=== PATIENT | female | born 1960 | race Caucasian/White ===

== ENCOUNTER 2016-11-02 07:45 | Outpatient (CLI) | payer BC ==
[~2016-11-02] VITALS: Ht 170.2 cm; Wt 95.5 kg
--- NOTE | ~2016-11-02 | HEMODYNAMI ---
PATIENT:ULI BAUMANN MEDICAL RECORD: [id number] : 56 LOCATION:[facility] ADMISSION DATE: 11/02/16 Generatedon:11/02/201612:36 Patient name: ULI BAUMANN Patient #: [id number] SSN: [id number] : 1960 Date of study: 11/02/2016 Page: Of Hemodynamic Procedure Report Patient Data Patient Demographics Procedure consent was obtained First Name: ULI Gender: Female Last Name: IBIS : 1960 Middle Initial: LESLIE Age: 56 year(s) Patient #: [id number] Race: SSN: [id number] Additional ID: [id number] Contact details [address]: [address] [place] [address] State: [place] City: [place] Zip code: [address] Past Medical History Allergies Allergen Reaction Date Comments Reported Other allergy 07/16/2015 NEOSPORIN Admission Admission Data Admission Date: 11/02/2016 Admission Time: 7:45 Arrival Date: 11/02/2016 Arrival Time: 9:30 Admit Source: Other Insurance Payor: Private health insurance Height (in.): 67 BSA: 2.07 (m2) Height (cm.): 170.18 BMI: 33.05 (kg/m2) Weight (lbs.): 211 Weight (kg.): 95.71 Lab Results Lab Result Date: 11/02/2016 Lab Result Time: 0:00 Biochemistry Name Units Result Min Max BUN mg/dl 45 --(----)-* 7 18 Creatinine mg/dl 1.3 --(---*)-- 0.6 1.3 CBC Name Units Result Min Max Hemoglobin g/dl 12.7 -*(----)-- 13.5 17.5 Procedure Procedure Types Cath Procedure Diagnostic Procedure C [facility] w/Coronaries PCI Procedure Coronary Stent Initial Procedure Description Procedure Date Procedure Date: 11/02/2016 Procedure Start Time: 12:07 Procedure End Time: 12:31 Procedure Staff Name Function Paul Colón MD Performing Physician Kylie Rees RT Scrub Eleanor San RN Nurse Geoffrey Valenzuela RT Bodily Injury Adjuster Farideh Samson RT Monitor Procedure Data Cath Procedure Fluoroscopy Diagnostic fluoroscopy Total fluoroscopy Time: 9.8 time: 9.8 min min Diagnostic fluoroscopy Total fluoroscopy dose: dose: 2552 mGy 2552 mGy Contrast Material Contrast Material Type Amount (ml) Isovue 370 92 Entry Location Entry Primary Successful Side Size Upsize Upsize Entry Closure Nogueira ccessful Closure Location (Fr) 1 (Fr) 2 (Fr) Remarks Device Remarks Radial Right 6 Fr Mechanical artery Short Compression Estimated blood loss: 5 ml Diagnostic catheters Device Type Used For End Catheter Placement Terumo Optitorque 5Fr Multi-vessel [place] 4.5 catheter Angiography Procedure Complications No complications Procedure Medications Medication Administration Route Dosage Oxygen NC 2 l/min Heparin Flush Bag added to field 2 bags (1000units/500ml NS) Lidocaine 2% added to field 20 Benadryl I.V. 50 mg Radial Cocktail added to field 1 syringe (Verapomil 2mg/Nitro 400mcg/Heparin 1500units) Versed I.V. 1 mg Fentanyl I.V. 50 mcg Radial Cocktail I.A. 1 syringe (Verapomil 2mg/Nitro 400mcg/Heparin 1500units) Versed I.V. 1 mg Fentanyl I.V. 50 mcg Fentanyl I.V. 50 mcg Versed I.V. 1 mg Heparin Bolus I.V. 4000 units Fentanyl I.V. 50 mcg Versed I.V. 1 mg Fentanyl I.V. 50 mcg Fentanyl I.V. 50 mcg Hemodynamics Rest BSA: 2.07 (m2) HGB: 12.7 (g/dl) O2 Consumption: Estimated: 192.38 (ml/min) O2 Co nsumption indexed: Estimated:92.94 (ml/min/m) Heart Rate: 64 (bpm) Pressure Samples Time Site Value (mmHg) Purpose Heart Use Rate(bpm) 12:11 LV 79/31,38 Snapshot 77 Snapshots Pre Cath Intra NCS Post Cath Vital Signs Time Heart Resp SPO2 NIBP (mmHg) Rhythm Pain Sedation Rate (ipm) (%) Status Level (bpm) 11:53:08 67 19 100 137/73(103) NSR 0 (11) 10(A) , No pain 11:57:26 66 22 100 127/75(102) NSR 0 (11) 10(A) , No pain 12:01:36 66 16 95 111/73(95) NSR 0 (11) 10(A) , No pain 12:05:44 68 16 95 109/67(86) NSR 0 (11) 10(A) , No pain 12:09:52 68 14 96 104/57(91) NSR 0 (11) 10(A) , No pain 12:14:51 71 14 97 99/54(77) NSR 0 (11) 10(A) , No pain 12:19:05 73 17 95 103/51(81) NSR 0 (11) 10(A) , No pain 12:23:15 77 14 96 99/56(82) NSR 0 (11) 9(A) , No pain 12:27:22 74 16 95 99/61(78) NSR 0 (11) 9(A) , No pain 12:31:06 78 16 95 113/66(93) NSR 0 (11) 10(A) , No pain Medications Time Medication Route Dose Verified Delivered Reason Note s Effectiveness by by 11:54:44 Oxygen NC 2 l/min Paul Eleanor Per physician Eldon San RN 11:54:51 Heparin Flush added 2 bags Paul Miller used for Bag to Eldon Colón MD procedure (1000units/500ml field NS) 11:54:57 Lidocaine 2% added 20ml Paul Paul used for to vial Eldon Colón MD procedure field 11:55:05 Benadryl I.V. 50 mg Paul Eleanor Per physician Eldon San RN 11:55:13 Radial Cocktail added 1 Paul Paul used for (Verapomil to syringe Eldon Colón MD procedure 2mg/Nitro field 400mcg/Heparin 1500units) 12:05:43 Versed I.V. 1 mg Paul Eleanor for sedation Eldon San RN 12:05:48 Fentanyl I.V. 50 mcg Paul Eleanor for sedation Eldon San RN 12:07:03 Fentanyl I.V. 50 mcg Paul Eleanor for sedation Eldon San RN 12:07:54 Versed I.V. 1 mg Paul Eleanor for sedation Eldon San RN 12:10:14 Fentanyl I.V. 50 mcg Paul Eleanor for sedation Eldon San RN 12:10:20 Versed I.V. 1 mg Paul Eleanor for sedation Eldon San RN 12:10:48 Radial Cocktail I.A. 1 Paul Paul for (Verapomil syringe Taudusty Colón MD vasodilation 2mg/Nitro 400mcg/Heparin 1500units) 12:14:00 Fentanyl I.V. 50 mcg Paul Eleanor for sedation Eldon San RN 12:14:05 Versed I.V. 1 mg Paul Eleanor for sedation Eldon San RN 12:15:03 Heparin Bolus I.V. 4000 Paul Eleanor for units Eldon San RN anticoagulation 12:20:47 Fentanyl I.V. 50 mcg Paul Eleanor for sedation Eldon San RN 12:22:03 Fentanyl I.V. 50 mcg Paul Eleanor for sedation Eldon San RN Procedure Log Time Note 11:30:14 Geoffrey Valenzuela RT(R) sent for patient. Start room use. 11:47:57 Diagnostic Cath Status : Elective 11:48:19 Time tracking: Regular hours 11:48:23 Plan of Care:Hemodynamics will remain stable., Cardiac rhythm will remain stable., Comfort level will be maintained., Respiratory function will remain adequate., Patient/ family verbilizes understanding of procedure., Procedure tolerated without complication., Recovers from procedure without complications.. 11:48:35 Patient received from Outpatients to [facility] 1 Alert and oriented. Tansferred to table in Supine position. 11:48:36 Warm blankets applied, and ricardo hugger turned on for patient comfort. 11:48:36 Correct patient and procedure confirmed by team. 11:48:38 Signed procedure consent form obtained from patient. 11:48:39 ECG and BP/O2 sat monitors applied to patient. 11:51:59 Vital chart was started 11:52:08 Baseline sample Acquired. 11:52:13 Rhythm: sinus rhythm 11:52:15 Full Disclosure recording started 11:52:42 H&P Date Dictated: 10/20/2016 Within 30 days and on chart., H&P Addendum completed by physician on day of procedure. (MUST COMPLETE FOR ALL OUTPATIENTS). 11:52:43 Pre-procedure instructions explained to patient. 11:52:43 Pre-op teaching completed and patient verbalized understanding. 11:52:44 Family in waiting room. 11:52:46 Patient NPO since Midnight. 11:52:48 Is the patient allergic to Iodine/contrast media? No. 11:52:49 Is patient on blood thinner?Yes 11:52:52 ACC The patient was administered the following blood thiners within the last 24 hours: ACCPlavix 11:54:44 Oxygen 2 l/min NC was given by Eleanor San RN; Per physician; 11:54:51 Heparin Flush Bag (1000units/500ml NS) 2 bags added to field was given by Paul Colón MD; used for procedure; 11:54:57 Lidocaine 2% 20ml vial added to field was given by Paul Colón MD; used for procedure; 11:55:05 Benadryl 50 mg I.V. was given by Eleanor San RN; Per physician; 11:55:13 Radial Cocktail (Verapomil 2mg/Nitro 400mcg/Heparin 1500units) 1 syringe added to field was given by Paul Colón MD; used for procedure; 11:58:47 Previous problem with sedation/anesthesia? No ? 11:58:50 Snore? Yes 11:59:03 Sleep apnea? No 11:59:04 Deviated septum? No 11:59:05 Opens mouth fully? Yes 11:59:05 Sticks out tongue? Yes 11:59:07 Airway obstruction? No ? 11:59:09 Dentures? No ? 11:59:15 Pre procedure: right dorsailis pedis pulse 1+ Palpable, but thready & weak; easily obliterated 11:59:19 Patient pain scale 0/10 ?. 11:59:25 IV patent on arrival in left forearm with 0.9% NaCl at [facility]. 11:59:46 Lab Result : BUN 45 mg/dl 11:59:46 Lab Result : Hemoglobin 12.7 g/dl 11:59:46 Lab Result : Creatinine 1.3 mg/dl 11:59:50 Lab results completed and on chart. 12:00:04 Right Radial & Right Groin area was prepped with chlora-prep and draped in sterile fashion 12:00:05 Alarms reviewed by R. N. 12:00:05 Sharps counted by scrub and verified by R.N. 12:01:12 Patient Height : 170.18 inches 12:01:16 Patient Weight : 95.71 lbs 12:01:16 Admit Source: Other 12:01:21 Arrival Date: 11/02/2016 9:30:00 AM 12:01:28 Insurance Payor : Private health insurance 12:02:37 Patient diabetic? Yes. 12:02:38 If diabetic: On Metformin? Yes 12:02:40 If on Metformin: Last Dose? 11/02/2016 12:05:22 Physician arrived 12:05:22 --------ALL STOP TIME OUT------ 12:05:23 Final Timeout: patient, procedure, and site verified with staff and physician. All members of the team are in agreement. 12:05:27 Right Radial & Right Groin site verified by team. 12:05:29 Physical assessment completed. ASA score P 2 - A patient with mild systemic disease as per Paul Colón MD. 12:05:33 Sedation plan: IV Moderate Sedation Versed, Fentanyl 12:05:41 Use device set Radial Dx 12:05:42 Acist Syringe opened to sterile field. 12:05:43 Versed 1 mg I.V. was given by Eleanor San RN; for sedation; 12:05:43 Cardinal Cath Pack opened to sterile field. 12:05:43 Bag Decanter opened to sterile field. 12:05:44 Terumo 6Fr Slender Glidesheath opened to sterile field. 12:05:44 St Jassi 260cm J .035 wire opened to sterile field. 12:05:45 Acist Manifold opened to sterile field. 12:05:46 Acist Hand Control opened to sterile field. 12:05:47 Tegaderm 4 x 4 opened to sterile field. 12:05:48 Fentanyl 50 mcg I.V. was given by Eleanor San RN; for sedation; 12:05:51 Procedure started. 12:07:03 Fentanyl 50 mcg I.V. was given by Eleanor San RN; for sedation; 12:07:28 Local anesthetic to right radial artery with Lidocaine 2% by Paul Colón MD.INITIAL ACCESS ONLY 12:07:54 Versed 1 mg I.V. was given by Eleanor San RN; for sedation; 12:10:01 A 6 Fr Short sheath was inserted into the Right Radial artery 12:10:14 Fentanyl 50 mcg I.V. was given by Eleanor San RN; for sedation; 12:10:20 Versed 1 mg I.V. was given by Eleanor San RN; for sedation; 12:10:34 A TerumEdgeInova International Optitorque 5Fr [place] 4.5 catheter was advanced over the wire and used for Multi-vessel Angiography. 12:10:48 Radial Cocktail (Verapomil 2mg/Nitro 400mcg/Heparin 1500units) 1 syringe I.A. was given by Paul Colón MD; for vasodilation; 12:11:32 LV hemodynamics recorded. 12:11:37 LV gram done using PIERSON 12:11:40 Injector settings: Ml/sec: 5, Volume: 15, 12:11:44 EF : 50 % 12:11:50 LCA angiography performed. 12:11:52 Injector settings: Ml/sec: 3, Volume: 6, 12:12:23 RCA angiography performed. 12:13:00 Gaytan RentPostisper J 300cm 0.014 guide wire opened to sterile field. 12:13:00 HOMEOSTASIS LABSixCompak Inflation Kit opened to sterile field. 12:13:12 Injector settings: Ml/sec: 3, Volume: 6, 12:13:14 Catheter removed. 12:14:00 Fentanyl 50 mcg I.V. was given by Eleanor San RN; for sedation; 12:14:05 Versed 1 mg I.V. was given by Eleanor San RN; for sedation; 12:14:39 Cordis 6FR XBLAD 3.5 guide catheter opened to sterile field. 12:14:50 Proceeding to intervention. 12:15:00 6 Fr xblad 3.5 guide catheter was inserted over the wire 12:15:03 Heparin Bolus 4000 units I.V. was given by Eleanor San RN; for anticoagulation; 12:18:51 dscovered Choice PT Extra Support J 300cm .014 gu opened to sterile field. 12:19:22 choice pt wire advanced. 12:20:47 Fentanyl 50 mcg I.V. was given by Eleanor San RN; for sedation; 12:22:03 Fentanyl 50 mcg I.V. was given by Eleanor San RN; for sedation; 12::53 Wire advanced across lesion. 12:24:51 Inflation number: 1 A Euphora 2.5 x 12 Balloon was prepped and advanced across the Mid CX, then inflated to 11 KOREY for 0:10 (min:sec). 12:26:12 Balloon removed over the wire. 12:27:29 Inflation Number: 2 A Promus Premier OTW 2.5 x 8 stent was prepped and advanced across the Mid CX. The stent was deployed at 13 KOREY for 0:10 (min:sec). 12:28:28 Stent catheter was removed intact over wire. 12:28:31 Wire removed. 12:28:31 Guide catheter removed. 12:28:37 Terumo TR Band Standard opened to sterile field. 12:29:48 Sheath removed intact; hemostasis achieved with Mechanical Compression to the Right Radial artery. 12:29:50 Procedure ended.(Physican Out) 12:30:43 Fluoroscopy time 09.80 minutes. 12:30:48 Fluoroscopy dose: 2552 mGy 12:30:48 Flurop Dose total: 2552 12:30:52 Contrast amount:Isovue 370 92ml. 12:30:54 Sharps counted by scrub and verified by R.N. 12:30:56 TR band inflated with 10cc of air. 12:30:57 Insertion/operative site no bleeding no hematoma. 12:31:02 Post right radial artery:stable 12:31:03 Post Procedure Pulses reassessed and unchanged 12:31:05 Post procedure rhythm: unchanged. 12:31:08 Estimated blood loss: 5 ml 12:31:10 Post procedure instruction explained to patient.Patient verbalizes understanding. 12:31:10 Patient needs reinforcement of post procedure teaching. 12:31:20 Procedure type changed to Cath procedure, Diagnostic procedure, LHC, LHC w/Coronaries, PCI procedure, Coronary Stent Initial 12::23 Procedure and supply charges have been captured, reviewed, submitted and are correct. 12::27 Procedure Complication : No complications 12:31:29 Vital chart was stopped 12::30 See physician's report for complete and final results. 12:31:32 Report given to Post Procedure Room. 12:31:40 Patient transfered to Post Procedure Room with Stretcher. 12:31:42 Procedure ended. 12:31:42 Full Disclosure recording stopped 12:32:47 ACC-PCI Only Patient was given prescriptions, or instructed by Paul Colón MD to start/continue the following medications upon discharge: Plavix 12:32:49 End room use (Document Last) Intervention Summary Intervention Notes Time ActionType Lesion and Equipment Action# Pressure Duration Attributes Used 12:24:51 Inflate Mid CX Euphora 1 11 00:10 balloon 2.5 x 12 Balloon 12:27:29 Place stent Mid CX Promus 2 13 00:10 Premier OTW 2.5 x 8 stent Device Usage Item Name Manufacture Quantity Catalog Number Hospital Part Current Mini mal Lot# / Charge Number Stock Stock Serial# Code Acist Acist 1 56070 625331 694867 725438 20 Syringe Medical Systems Inc Cardinal Cardinal 1 [id number] 177811 09272 372019 5 Cath Pack Health Bag Microtek 1 2002S 238243 50538 964889 5 Aztec [employer] Inc. Terumo 6Fr Terumo 1 [id number] 450275 512251 106594 [address] Jassi St Jassi 1 450713 018805 123851 237701 30 260cm J .035 wire Acist Acist 1 89023 507787 995656 804917 5 Manifold Medical Systems Inc Acist Hand Acist 1 67730 898233 405080 791896 5 National Banana Medical Systems Inc Tegaderm 4 3M 1 1626W 264488 750933 515566 5 x 4 Terumo Terumo 1 405012 612601 973828 167919 5 Optitorque 5Fr [place] 4.5 catheter Gaytan Gaytan 1 [id number] 478652 524564 035841 5 Whisper J Vascular 300cm 0.014 guide wire Merit Merit 1 [id number] 309124 889727 782497 15 [employer] Inflation Kit Cordis 6FR Cardinal 1 [id number] 150332 021969 270083 10 XBLAD 3.5 Health guide catheter Dodge Sci Dodge 1 [id number] 002700 239168 938007 5 Choice PT Scientific Extra Support J 300cm .014 gu Euphora 2.5 Medtronic 1 [id number] 557006 489364 372573 5 [id number] x 12 Balloon Promus Dodge 1 [id number] 661341 622810 5 [id number] Premier [facility] Scientific 2.5 x 8 stent Terumo TR Terumo 1 [id number] 282629 835680 681519 40 Band Standard Signature Audit [place] Stage Time Signature Unsigned Intra-Procedure 11/02/2016 Farideh Samson 12:36:29 PM RT(R) Signatures Monitor : Farideh Samson RT Signature : Date : Time : [facility] [address] [place] [address]
[~2016-11-02 07:45] MED LIST: AMBIEN10 MG PO; ASPIRIN325 MG; BORAGE OIL; CIPRO500 MG PO; CYCLOBENZAPRINE10 MG PO; FLAGYL500 MG PO; LIPITOR40 MG PO; NORCO 7.5/325 T1 TA1 PO; PLAVIX75 MG PO; PRILOSEC20 MG PO; TOPROL XL100 MG PO; ZESTRIL20 MG PO; ZOFRAN ODT4 MG/UDTAB PO
[2016-11-02 08:23] LABS: BASOPHILS 0.4 % (0.0-2.0); EOSINOPHILS 3.3 % (0-7); HEMATOCRIT 38.6 % (36.0-48.0); HEMOGLOBIN 12.7 g/dL (12-16); IMMATURE GRANULOCYTES 0.1 % (0-5); MCH 28.3 pg (26.0-34.0); MCHC 32.9 g/dL (31.0-37.0); MCV 86.2 fL (80.0-100.0); MEAN PLATELET VOLUME 10.6 fL (7.4-10.4); MONOCYTES 10.3 % (2-11); NEUTROPHILS 57.9 % (40-80); PLATELET COUNT 211 10x3/uL (130-400); RBC 4.48 10x6/uL (4.00-5.40); RDW 14.5 % (11.5-14.5); WBC 7.7 10x3/uL (4.8-10.8)
[2016-11-02 08:45] LABS: ANION GAP 12.8 mmol/L (8-16); CARBON DIOXIDE 23.9 mmol/L (21.0-32.0); CREATININE - SERUM 1.3 mg/dL (0.6-1.3); POTASSIUM - SERUM 4.7 mmol/L (3.5-5.1)
[2016-11-02] MEDS ORDERED: AMBIEN CR12.5 MG/BO PO (08:46)
[2016-11-02] MEDS ORDERED: METOPROLOL TAR100 M1 PO (08:49)
[2016-11-02] MEDS ORDERED: CO Q-10100 MG PO (08:49)
[2016-11-02] MEDS ORDERED: PLAVIX75 MG PO ×3 (08:49→12:43)
[2016-11-02] MEDS ORDERED: TOPROL XL100 MG PO (08:49)
[2016-11-02 08:57] VITALS: Ht 170.2 cm; Wt 95.5 kg
--- NOTE | 2016-11-02 12:53 | NUR ---
RESTING QUIETLY, FAMILY AT BEDSIDE. VSS. RIGHT WRIST CDI, NO HEMATOMA NOTED. INSTRUCTED PT NOT TO BEND OR FLEX WRIST. NO C/O OF CHEST PAIN OR NAUSEA. WILL CONTINUE TO MONITOR.
--- NOTE | 2016-11-02 13:32 | NUR ---
HR 66 BP 115/59 CHEST PAIN DENIED TR BAND TO R/WRIST CDI NO BLEEDING NO HEMATOMA NOTED. SANDWICH AND SODA TO BEDSIDE WITH NAUSEA DENIED
--- NOTE | 2016-11-02 14:30 | NUR ---
SITTING WITH HOB UP 30 DEGREES VSS AND CHEST PAIN DENIED. TR BAND TO R/WRIST CDI NO BLEEDING NO HEMATOMA NOTED. FAMILY AT SIDE
--- NOTE | 2016-11-02 15:30 | NUR ---
2 CC AIR REMOVED FROM TR BAND WITH NO BLEEDING NO HEMATOMA NOTED VSS WITH CHEST PAIN DENIED
--- NOTE | 2016-11-02 15:52 | NUR ---
PIV REMOVED FROM LEFT ARM WITH BANDAID APPLIED. UP TO BATHROOM TO VOID.
--- NOTE | 2016-11-02 15:59 | NUR ---
PATIENT DRESSED AND UP TO BATHROOM VOIDS WITHOUT COMPLAINTS. DISCHARGE INSTRUCTIONS GONE OVER WITH PATIENT AND FAMILY TR BAND REMOVED WITH DRESSING APPLIED NO BLEEDING NO HEMATOMA NOTED CHEST PAIN IS DENIED. PRISCRIPTION FOR PLAVIX IN HAND
--- NOTE | 2016-11-05 11:12 | OP ---
PATIENT NAME: ULI BAUMANN MEDICAL RECORD: [id number] :56 LOCATION:D.CAT ADMISSION DATE: SURGEON: NEGRA OLIVIA MD DATE OF OPERATION: 11/02/2016 PROCEDURES: 1. PTCA stent, left circumflex. 2. Left heart catheterization. 3. Selective coronary angiography. 4. Left ventriculogram. INDICATION: Angina and coronary artery disease. PROCEDURE IN DETAIL: After informed consent was obtained and after detailed explanation of risks, benefits as well as alternative therapies, the patient elected to proceed with angiogram and angioplasty. The right radial area was prepped and draped in normal sterile fashion. The right radial artery was cannulated via modified Seldinger technique with placement of 6-Romansh sheath. All catheters exchanged through this sheath. FINDINGS: Left ventriculogram was performed in standard 30-degree PIERSON view, reveals preserved cardiac wall motion, ejection fraction 50%. SELECTIVE CORONARY ANGIOGRAPHY: 1. Left main is with no significant angiographic disease. 2. Left anterior descending has previously placed stents, these are widely patent with no significant restenosis. No disease elsewise throughout the LAD or its branches. 3. The right coronary artery has previously placed stents. These are totally occluded in the mid vessel. The distal right coronary fills via left to right collaterals off the circumflex. 4. The left circumflex has a previously placed stent. This is widely patent. However, the branch that feeds the collaterals to the distal RCA has an 80% and 90% stenosis at its ostium. PERCUTANEOUS TRANSLUMINAL CORONARY ANGIOPLASTY STENT OF THE LEFT CIRCUMFLEX: The stent used was a 2.5 x 8 mm Promus. Result was 0% residual stenosis. OVERALL IMPRESSION: Successful percutaneous transluminal coronary angioplasty stent of the left circumflex in a branch that feeds not only the distal left circumflex but feeds collaterals to the distal right coronary artery from chronic total occlusion of the right coronary artery going from 80+ percent initial stenosis in that branch to 0% residual. TRANSINT:[id number] Voice Confirmation ID: [id number] DOCUMENT ID: [id number] NEGRA OLIVIA MD at 1112 CC: [id number] DICTATION DATE: 11/02/16 1235 CONTINUOUS PILLOWCASE CUTTER: 11/02/16 1313 DEP CLI 11/02/[address] [address]
== END 2016-11-02 16:15 | disposition home or self-care (01) ==
LOC: D.CATH 07:45
PROVIDERS: Internal Medicine Interventional Cardiology
DX: I25.119 Atherosclerotic heart disease of native coronary artery with unspecified angina pectoris (principal); I25.10 Atherosclerotic heart disease of native coronary artery without angina pectoris; I10 Essential (primary) hypertension; E78.5 Hyperlipidemia, unspecified

== ENCOUNTER 2017-02-05 18:48 | Inpatient (IN) | payer BC ==
[~2017-02-05] VITALS: Ht 170.2 cm; Wt 93.4 kg
[~2017-02-05 18:48] MED LIST changes: +AMBIEN CR12.5 MG/BO PO; +CO Q-10100 MG PO; +METOPROLOL TAR100 M1 PO
[2017-02-05 21:05] LABS: BASOPHILS 0.2 % (0-2); EOSINOPHILS 0.7 % (0-7); HEMOGLOBIN 12.9 g/dL (12-16); IMMATURE GRANULOCYTES 0.2 % (0-5); LYMPHOCYTES 15.5 % (15-50); MCH 28.2 pg (26.0-34.0); MCHC 33.1 g/dL (31.0-37.0); MCV 85.3 fL (80.0-100.0); MEAN PLATELET VOLUME 11.1 fL (7.4-10.4); MONOCYTES 9.3 % (2-11); NEUTROPHILS 74.1 % (40-80); PLATELET COUNT 222 10x3/uL (130-400); RBC 4.57 10x6/uL (4.00-5.40); RDW 14.2 % (11.5-14.5); WBC 12.2 10x3/uL (4.8-10.8)
[2017-02-05 21:14] LABS: APTT 25.4 SECONDS (22.8-39.4); INR 0.91 (0.85-1.17); PROTIME 12.1 SECONDS (11.6-15.0)
[2017-02-05 21:18] LABS: ALBUMIN 3.8 g/dL (3.4-5.0); ANION GAP 13.8 mmol/L (8-16); BILIRUBIN - TOTAL 0.5 mg/dL (0.2-1.3); CALCIUM 9.2 mg/dL (8.5-10.1); CARBON DIOXIDE 26.2 mmol/L (21.0-32.0); CREATININE - SERUM 1.1 mg/dL (0.6-1.3); PROTEIN - SERUM 7.8 g/dL (6.4-8.2)
[2017-02-05] MEDS ORDERED: GABAPENTIN100 MG PO (22:06)
--- NOTE | 2017-02-05 22:50 | NUR ---
REC'D PATIENT FROM ER VIA STRETCHER. REC;D REPORT FROM SPEEDY MARISCAL. PATIENT IS ALERT AND ORIENTED X4. DENIES PAIN AT THIS TIME. HAD PAIN MEDS IN THE ER. NO DISTRESS NOTED. HAS ABNER IN HER HEAD THAT ARE BLEEDING FROM THE SITE. COVERED WITH A PETROLUM DRESSING AND WRAPPED WITH GAZE UNTIL BLEEDING IS CONTROLLED. RESPIRATIONS ARE EVEN AND UNLABORED. LUNGS ARE CLEAR IN ALL LOBES. ABDOMEN ROUND SLIGHTLY DISTENDED. REPORTED LAST BM 02/04/17. URINE IS CLEAR, STRAW COLORED.DENIES DIFFICULTY URINATING. FULL ROM IN UPPER AND LOWER EXTREMITIES. MUSCLE STRENGTH 5/5. EQUAL FREE LANCE MODEL. SKIN IS WARM, AND DRY. HAS A LACERATION TO THE SCALP WITH ABNER INTACT, BRUSING ON THE RIGHT SIDE OF HER NECK, IT IS MARKED TO SEE IF IT GROWS. ABRASION TO THE RIGHT FORARM AND KNEE WITH POSSBLE CONTUSIONS. HAS A LEFT FORARM 20G WITH NS @75. DENIES FURTHER NEEDS AT THIS TIME. INSTRUCTED TO CALL IF NEEDED ANYTHING. FAMILY IS AT BEDSIDE. BED LOW, LOCKED, CALL LIGHT IN REACH.
[2017-02-06] VITALS (7 sets, daily range): BP systolic 119–171; BP diastolic 73–98; BMI 32.2
--- NOTE | 2017-02-06 07:00 | NUR ---
PT REC'D FROM [facility]. RESTING IN BED WITH EYES CLOSED. AAOX4. DRESSING TO HEAD INTACT WITH SCANT AMOUNT OF SEROSANGUINOUS DRAINAGE TO TOP R SIDE. RATING CURRENT PAIN IN HEAD AND SHOULDERS 10/10. WILL ADMINISTER PAIN MEDS. PIV TO L FOREARM FREE OF REDNESS AND SWELLING. BED LOW, CALL LIGHT IN REACH, DENIES NEEDS. CPOC.
--- NOTE | 2017-02-06 08:13 | NUR ---
PRN MORPHINE ADMINISTERED PER PT COMPLAINTS OF 10/10 HEAD AND SHOULDER PAIN. WILL REASSESS. BED LOW, CALL LIGHT IN REACH, DENIES NEEDS. CPOC.
--- NOTE | 2017-02-06 11:54 | NUR ---
PT BEING TAKEN FOR CT VIA WC.
--- NOTE | 2017-02-06 12:22 | NUR ---
PRN ANTIEMETIC AND PAIN MEDICATION ADMINISTERED PER PT COMPLAINTS OF NAUSEA AND 10/10 HEAD AND NECK PAIN. WILL REASSESS. LUNCH TRAY AT BEDSIDE. BED LOW, CALL LIGHT IN REACH, DENIES NEEDS. CPOC.
--- NOTE | 2017-02-06 12:37 | NUR ---
PRN PAIN MEDICATION ADMINISTERED DUE TO PT COMPLAINTS OF 5/10 L HIP PAIN. BED GUESTS AT BEDSIDE. AWAITING DR. OSORIO TO COME SPEAK WITH THEM ABOUT SURGERY TOMORROW. BED LOW, LUNCH TRAY AT BEDSIDE, DENIES NEEDS. CPOC.
--- NOTE | 2017-02-06 13:03 | NUR ---
PT MOTHER AT NURSES STATION. UPDATE PROVIDED.
--- NOTE | 2017-02-06 15:06 | NUR ---
SPOKE WITH DR. AMOR ON PHONE ABOUT CT. STATED THAT IT HAD NOT BEEN READ YET. INSTRUCTED TO GIVE HIM A CALL WHEN IT HAD BEEN TO STAY UP TO DATE.
--- NOTE | 2017-02-06 16:14 | NUR ---
SHEET METAL OPERATOR SET UP AND PT INSTURCTED ON DEVICE. ABLE TO RETURN DEMONSTRATION. RATING CURRENT PAIN IN HEAD AND NECK A 10/10. WILL REASSESS. BED LOW, CALL LIGHT IN REACH, DENIES NEEDS. CPOC.
--- NOTE | 2017-02-06 18:12 | NUR ---
SPOKE WITH PT ABOUT HER HOME MEDICATIONS. CALLED DR. CAMERON IN THE ER. HE STATED THAT I NEEDED TO CALL THE NURSE SALES SERVICE ASSISTANT. WILL PAGE.
--- NOTE | 2017-02-06 18:54 | NUR ---
SPOKE WITH DR. CAMERON ABOUT CONTINUING HOME MEDS. NEW ORDERS REC'D. PT UPDATED ON POC.
--- NOTE | 2017-02-06 22:33 | NUR ---
PATIENT RESTING IN BED WITH EYES CLOSED AND NO VISIBLE SIGNS OF DISTRESS. BED IN LOWEST POSITION AND CALL LIGHT WITHIN REACH.
[2017-02-07] VITALS: BP 149/96
--- NOTE | 2017-02-07 01:09 | NUR ---
REC'D PATIENT SITTING IN BED WATCHING TV. ALERT AND ORIENTED X4. REPORTED PAIN MORE SORENESS IN HER SHOULDERS AND NECK THAN ANYTHING. CHANGED DRESSING ON HEAD, IS SEEPING SLIGHTLY. STATES SHE IS HAVING SOME NAUSA, WILL ADMINISTER MEDS PRESCRIBED. WAS STILL WANTING TO KNOW ABT HER BP MEDS. @2230 SPEEDY NORIEGA PULLED LISOPRIL AND LOPRESSOR FOR HER PER DOCTORS ORDERS. ADMINISTERED WILL CONT TO MONITOR BP AND HR. THE BRUISE ON HER NECK HAS GROWN PAST THE MARKINGS. NIECE IS AT BEDSIDE. DENIED FURTHER NEEDS AT THIS TIME. BED LOW, LOCKED CALL LIGHT IN REACH.
[2017-02-07 04:00] VITALS: BP 158/89
[2017-02-07 06:20] LABS: BASOPHILS 0.2 % (0-2); EOSINOPHILS 0 % (0-7); HEMATOCRIT 38.2 % (36.0-48.0); HEMOGLOBIN 12.5 g/dL (12-16); IMMATURE GRANULOCYTES 0.3 % (0-5); LYMPHOCYTES 9.9 % (15-50); MCH 27.9 pg (26.0-34.0); MCHC 32.7 g/dL (31.0-37.0); MCV 85.3 fL (80.0-100.0); MONOCYTES 9.6 % (2-11); PLATELET COUNT 200 10x3/uL (130-400); RBC 4.48 10x6/uL (4.00-5.40); RDW 14.4 % (11.5-14.5); WBC 10.6 10x3/uL (4.8-10.8)
[2017-02-07 06:54] LABS: ANION GAP 14.2 mmol/L (8-16); CALCIUM 9.4 mg/dL (8.5-10.1); CARBON DIOXIDE 30.3 mmol/L (21.0-32.0); POTASSIUM - SERUM 3.5 mmol/L (3.5-5.1)
--- NOTE | 2017-02-07 08:35 | NUR ---
PT SEEN AND ASSESSED. WRAP NOTED TO HEAD WITH ABNER TO RIGHT SIDE OF HEAD-ALL CLEAN DRY AND INTACT. LARGE AMOUNT OF BRUISING NOTED TO RIGHT NECK-ABRASIONS NOTED TO RIGHT FOREARM AND RIGHT KNEE. COMPLAINTS OF PAIN BUT USING WAX PUMPER FOR TOLERANCE. CALL LIGHT IN PLACE
[2017-02-07 08:44] VITALS: BP 174/93
[2017-02-07 12:00] VITALS: BP 163/111
[2017-02-07 14:06] VITALS: Ht 170.2 cm; Wt 93.4 kg
[2017-02-07 16:56] VITALS: BP 134/71
[2017-02-07 18:00] VITALS: BP 136/62
--- NOTE | 2017-02-07 19:15 | NUR ---
REC'D PATIENT SITTING UP IN BED WATCHING TV. ALERT AND ORIENTED X4. DENIES PAIN AT THIS TIME. IS WANTING TO WASH HER HAIR AND BODY. TOOK A SHAMPOO CAP AND SOME BODY WASH AND A BASIN TO HER. NO DISTRESS NOTED. TOOK WRAP OFF OF HEAD. DENIED FURTHER NEEDS AT THIS TIME. INSTRUCTED TO CALL IF NEEDED ANYTHING. BED LOW, LOCKED, CALL LIGHT IN REACH.
[2017-02-08] VITALS: BP 107/82
[2017-02-08 04:00] VITALS: BP 159/89
[2017-02-08 05:56] LABS: BASOPHILS 0.2 % (0-2); EOSINOPHILS 0.6 % (0-7); HEMATOCRIT 37.5 % (36.0-48.0); HEMOGLOBIN 12.7 g/dL (12-16); IMMATURE GRANULOCYTES 0.2 % (0-5); LYMPHOCYTES 13.4 % (15-50); MCH 28.7 pg (26.0-34.0); MCHC 33.9 g/dL (31.0-37.0); MCV 84.7 fL (80.0-100.0); MEAN PLATELET VOLUME 10.7 fL (7.4-10.4); MONOCYTES 13.7 % (2-11); NEUTROPHILS 71.9 % (40-80); PLATELET COUNT 206 10x3/uL (130-400); RBC 4.43 10x6/uL (4.00-5.40); RDW 14.2 % (11.5-14.5); WBC 12.6 10x3/uL (4.8-10.8)
[2017-02-08 06:24] LABS: ANION GAP 13.4 mmol/L (8-16); CALCIUM 9.1 mg/dL (8.5-10.1); CARBON DIOXIDE 27.3 mmol/L (21.0-32.0); CREATININE - SERUM 0.9 mg/dL (0.6-1.3); POTASSIUM - SERUM 3.7 mmol/L (3.5-5.1)
--- NOTE | 2017-02-08 07:44 | NUR ---
AWAKE AND ALERT.ORIENTED X3. C/O NECK PAIN THIS AM. NEURO CHECKS WNL. WILL MONITOR. LUNGS ARE CLEAR BILATERALLY, NO COUGH NOTED. SKIN IS INTACT WITHOUT REDNESS. THERE IS A SCABBED AREA NOTED TO RIGHT KNEE WHICH IS SWOLLEN THIS AM. IV TO LEFT FOREARM IS PATENT WITHOUT REDNESS. DENIES NEEDS.
[2017-02-08 08:52] VITALS: BP 176/98
--- NOTE | 2017-02-08 09:30 | NUR ---
Patient Name: ULI BAUMANN Admission Status: ER Accout number: [id number] Admission Date: 02-05-2017 : 1960 Admission Diagnosis: Attending: TIA Current LOS: 3 Anticipated DC Date: 02-09-2017 Planned Disposition: Home Primary Insurance: [employer] [facility] EXCHANGE Discharge Planning Comments: CM MET WITH PATIENT REGARDING D/C NEEDS AND PLANS. PATIENT STATED SHE LIVES ALONE AND HER NIECE HELPS HER WHEN NEEDED. PATIENT STATED SHE HAS A RAMP TO ENTER HER HOME AND NO STAIRS ONCE INSIDE HOME. PATIENT IS INDEPENDENT WITH HER CARE AND HAS A CANE, WALKER, SHOWER CHAIR, AND GLUCOMETER (CHECKS DAILY) AT HOME. PATIENTS PCP IS DR. WELSH AND USES [facility]. PATIENT REFUSED HOME HEALTH AND STATED SHE HAS BEEN GOING TO OP THERAPY FOR OTHER PROBLEMS. CM WILL CONTINUE TO FOLLOW PATIENT WITH D/C NEEDS AND PLANS. PCP DR. WELSH [facility]- [phone] KRYSTLE ([facility]) [phone] Multimedia Services Manager: Jackie Rapp Is the patient Alert and Oriented? Yes 0 * How many steps to enter\exit or inside your home? RAMP 0 * PCP DR. WELSH 0 * Pharmacy [facility] 0 * Preadmission Environment Home Alone 0 * ADLs Independent 0 * Equipment Cane Glucometer Shower Chair Walker 0 * List name and contact numbers for known caregivers / representatives who currently or will assist patient after discharge: KRYSTLE ([facility]) [phone] * Community resources currently utilized None 0 * Additional services required to return to the preadmission environment? Yes 0 * Can the patient safely return to the preadmission environment? Yes 0 * Has this patient been hospitalized within the prior 30 days at any hospital? No 0 Grand Total: 0
[2017-02-08] MEDS ORDERED: NORCO 7.5/325 T1 TA1 PO (09:37)
--- NOTE | 2017-02-08 10:48 | NUR ---
AMBULATED IN HALLWAY WITH PT. BALANCE IS FAIR. GIVEN ONE HYDROCODONE PO PER ORDERS AND 4MG ZOFRAN SLOW IVP FOR C/O NAUSEA. WILL MONITOR.
--- NOTE | 2017-02-08 13:00 | NUR ---
WAS ABLE TO EAT SOME SOUP FOR LUNCH "THANKS TO THE PRILOSEC".
--- NOTE | 2017-02-08 13:30 | NUR ---
DISCHARGE ORDERS RECEIVED. DISCHARGE INSTRUCTIONS GIVEN BOTH VERBALLY AND WRITTEN. ALL QUESTIONS ANSWERED. PATIENT VERBALIZED UNDERSTANDING OF SAME. IV TO LEFT FOREARM D/C WITH CATHETER INTACT. WAITING ON RIDE FOR DISCHARGE.
[2017-02-08 13:45] VITALS: BP 161/94
--- NOTE | 2017-02-08 15:24 | NUR ---
DISCHARGED TO HOME AMBULATORY WITH FAMILY.
== END 2017-02-08 15:24 | disposition home or self-care (01) | DRG 84 ==
LOC: D.ER 18:48 → D.MS 20:44 → OBSVTIME 20:44 → D.MS 20:44
PROVIDERS: Emergency Medicine; ADMIT Family Medicine Adult Medicine
PROC: 0HQ0XZZ Repair Scalp Skin, External Approach (ICD-10-PCS; principal; 2017-02-05)
DX: S06.5X9A Traumatic subdural hemorrhage with loss of consciousness of unspecified duration, initial encounter (principal); S01.01XA Laceration without foreign body of scalp, initial encounter; R40.2412 Glasgow coma scale score 13-15, at arrival to emergency department; W20.8XXA Other cause of strike by thrown, projected or falling object, initial encounter; Y93.89 Activity, other specified; S00.03XA Contusion of scalp, initial encounter; S80.211A Abrasion, right knee, initial encounter; S50.811A Abrasion of right forearm, initial encounter; G93.89 Other specified disorders of brain

== ENCOUNTER 2017-06-08 09:04 | Outpatient (CLI) | payer BC ==
[~2017-06-08] VITALS: Ht 170.2 cm; Wt 90.9 kg
--- NOTE | ~2017-06-08 | HP ---
PATIENT: ULI BAUMANN MEDICAL RECORD: [id number] ACCOUNT: [id number] LOCATION:[place] : 56 ADMISSION DATE: 06/08/17 HISTORY AND PHYSICAL EXAMINATION ADMITTING DIAGNOSES: 1. Angina. 2. Abnormal nuclear stress test. 3. Hypertension. 4. Hyperlipidemia. HISTORY OF PRESENT ILLNESS: Mrs. Baumann has been having increasing episodes of chest pain, chest discomfort compatible with angina. Nuclear stress test with perfusion defects anteriorly as well as inferolaterally, now brought for cardiac catheterization. PHYSICAL EXAMINATION: GENERAL APPEARANCE: Well-nourished, well-developed, appears stated age. Level of distress, comfortable. PSYCHIATRIC: Mental status, alert, normal affect. Orientation, oriented to time, place and person. EYES: Lids and conjunctiva, noninjected. No discharge, no pallor. ENT: Lips, teeth, gums, normal dentition. Oropharynx, no cyanosis, no pallor. NECK: Carotid arteries, bilateral normal upstroke, no bruits, no thrills. JUGULAR VEINS: No jugular venous pressure or distention. CERVICAL LYMPH NODES: Nontender, nonenlarged. THYROID: Not enlarged. Nontender. No nodules. LUNGS: Respiratory effort, unlabored. CHEST: Normal curvature. No thoracic deformity. No chest wall tenderness. Percussion, resonant. Auscultation, clear. No wheezes, no rales, no rhonchi. CARDIOVASCULAR: Precordial exam, nondisplaced. No heaves or pericardial thrills. Rate and rhythm, regular. Heart sounds, normal S1, normal S2. No S3, no gallop, no rub. Systolic murmur, not heard. Diastolic murmur, not heard. EXTREMITIES: No cyanosis, no edema. Peripheral pulses, full and equal in all extremities, except as noted. No bruits appreciated. ABDOMEN: Soft, nondistended. Normal aorta. No bruit. Nontender. No masses. Liver, nontender, no hepatomegaly. Spleen, nontender, no splenomegaly. MUSCULOSKELETAL: No joint tenderness. No joint swelling. No erythema. NEUROLOGICAL: Normal gait, normal strength, normal tone. SKIN: Warm and dry. REVIEW OF SYSTEMS: The patient reports easy bruising but reports no swollen glands. The patient reports no fever, no night sweats, no significant weight gain, no significant weight loss. No significant exercise tolerance. The patient reports no dry eyes, no irritation, no vision change. Patient reports no difficulty hearing and no ear pain. Patient reports no frequent nose bleeds or nose and sinus problems. Patient reports on arm pain on exertion. No shortness of breath while lying down. No history of heart murmur. Patient reports no cough, no wheezing or coughing up blood. Patient reports no abdominal pain, no vomiting. Normal appetite. No diarrhea and not vomiting blood. No nausea and no constipation. Patient reports no incontinence. No difficulty urinating. No hematuria. No increased frequency. Patient reports no muscle aches. No weakness, no arthralgias, no back pain. No swelling of the extremities. Patient reports no abnormal mole, no jaundice, no rashes. Reports no loss of consciousness. No weakness and no numbness. No seizures, dizziness, HISTORY AND PHYSICAL [id number] BAUMANN,ULI NELSON or headaches. The patient reports no depression, no sleep disturbance, feeling safe in a relationship and no alcohol abuse. Patient reports on fatigue. Reports no runny nose or sinus pressure. No itching, no hives, and no frequent sneezing. OVERALL IMPRESSION: Chest discomfort in an escalating fashion with abnormal nuclear stress test. We will proceed with coronary angiography as there is a high likelihood of recurrent hemodynamically significant coronary artery disease. Further care depends upon the findings of the angiography. TRANSINT:[id number] Voice Confirmation ID: [id number] DOCUMENT ID: [id number] NEGRA OLIVIA MD CC: [id number] DICTATION DATE: 06/08/17850 CPHT: 06/08/17 09 PRE [facility] [address] [place] [address]
--- NOTE | ~2017-06-08 | OP ---
PATIENT NAME: ULI BAUMANN MEDICAL RECORD: [id number] :[birth year] LOCATION:D.CAT ADMISSION DATE: SURGEON: NEGRA OLIVIA MD DATE OF OPERATION: 06/08/2017 PROCEDURES: 1. Left heart catheterization. 2. Selective coronary angiography. 3. Left ventriculogram. INDICATION: Chest pain, coronary artery disease, previous PTCA stent. PROCEDURE IN DETAIL: After informed consent was obtained, after detailed explanation of risks, benefits as well as alternative therapies, the patient elected to proceed with angiogram and heart catheterization. The right femoral area was prepped and draped in normal sterile fashion. The right femoral artery was cannulated via modified Seldinger technique with placement of 6-Mongolian sheath. All catheters exchanged through this sheath. FINDINGS: Left ventriculogram was performed in standard 30-degree PIERSON view, reveals mildly depressed cardiac wall motion throughout all segments. Overall ejection fraction 40%. SELECTIVE CORONARY ANGIOGRAPHY: 1. Left main showed no significant angiographic disease. 2. Left anterior descending has previously placed stents, these are widely patent with no significant restenosis. No disease elsewise throughout the LAD or its branches. 3. Left circumflex has previously placed stents, these are widely patent with no significant restenosis. No disease elsewise throughout the left circumflex or its branches. 4. Right coronary is chronically totally occluded, distal right coronary fills via left to right collaterals. OVERALL IMPRESSION: No new coronary artery disease is present, wide patency of the previously placed stent in the left side. The right coronary is unchanged from previous angiography and chronically totally occluded, fills via left to right collaterals. Continue medical management of the coronary artery disease and cardiac risk factors. TRANSINT:[id number] Voice Confirmation ID: [id number] DOCUMENT ID: [id number] NEGRA OLIVIA MD CC: [id number] DICTATION DATE: 06/08/17 1139 TIMBER FELLER: 06/08/17 1152 REG [facility] [address] [place] [address]
--- NOTE | ~2017-06-08 | HEMODYNAMI ---
PATIENT:ULI BAUMANN MEDICAL RECORD: [id number] : 56 LOCATION:D.CAT ADMISSION DATE: 06/08/17 Generatedon:06/08/201711:41 Patient name: ULI BAUMANN Patient #: [id number] SSN: [id number] : 1960 Date of study: 06/08/2017 Page: Of Hemodynamic Procedure Report Patient Data Patient Demographics Procedure consent was obtained First Name: ULI Gender: Female Last Name: IBIS : 1960 Middle Initial: LESLIE Age: 57 year(s) Patient #: [id number] Race: SSN: [id number] Additional ID: [id number] Contact details [address]: [address] [place] [address] State: [place] City: [place] Zip code: [address] Past Medical History Allergies Allergen Reaction Date Comments Reported Other allergy 07/16/2015 NEOSPORIN Admission Admission Data Admission Date: 06/08/2017 Admission Time: 9:04 Arrival Date: 06/08/2017 Arrival Time: 11:00 Admit Source: Other Insurance Payor: Private health insurance Height (in.): 67 BSA: 2.04 (m2) Height (cm.): 170.18 BMI: 32.11 (kg/m2) Weight (lbs.): 205 Weight (kg.): 92.99 Lab Results Lab Result Date: 06/08/2017 Lab Result Time: 0:00 Biochemistry Name Units Result Min Max BUN mg/dl 31 --(----)-* 7 18 Creatinine mg/dl 1.2 --(---*)-- 0.6 1.3 CBC Name Units Result Min Max Hemoglobin g/dl 13.3 -*(----)-- 13.5 17.5 Procedure Procedure Types Cath Procedure Diagnostic Procedure LHC LHC w/Coronaries Miscellaneous Procedures Moderate Sedation up to 30 minutes Procedure Description Procedure Date Procedure Date: 06/08/2017 Procedure Start Time: 11:27 Procedure End Time: 11:40 Procedure Staff Name Function Paul Colón MD Performing Physician Kylie Rees RT Scrub Dionicio Betancourt RN Nurse Farideh Samson RT Monitor Procedure Data Cath Procedure Fluoroscopy Diagnostic fluoroscopy Total fluoroscopy Time: 1.1 time: 1.1 min min Diagnostic fluoroscopy Total fluoroscopy dose: 631 dose: 631 mGy mGy Contrast Material Contrast Material Type Amount (ml) Isovue 300 46 Entry Location Entry Primary Successful Side Size Upsize Upsize Entry Closure Succes sful Closure Location (Fr) 1 (Fr) 2 (Fr) Remarks Device Remarks Femoral Right 5 Fr Exoseal artery Estimated blood loss: 5 ml Diagnostic catheters Device Type Used For End Catheter Placement Cordis 5Fr Pigtail LV Angiography Catheter (MP) Cordis 5Fr JL 4.0 Left Coronary Catheter (MP) Angiography Cordis 5Fr 3DRC Catheter Right Coronary (MP) Angiography Procedure Complications No complications Procedure Medications Medication Administration Route Dosage Oxygen NC 2 l/min Lidocaine 2% added to field 20 Heparin Flush Bag added to field 2 bags (1000units/500ml NS) 0.9% NaCl I.V. 100 ml/hr Versed I.V. 2 mg Fentanyl I.V. 100 mcg Versed I.V. 1 mg Fentanyl I.V. 50 mcg Versed I.V. 1 mg Fentanyl I.V. 50 mcg Fentanyl I.V. 50 mcg Hemodynamics Rest BSA: 2.04 (m2) HGB: 13.3 (g/dl) O2 Consumption: Estimated: 181.74 (ml/min) O2 Co nsumption indexed: Estimated:89.09 (ml/min/m) Heart Rate: 54 (bpm) Pressure Samples Time Site Value (mmHg) Purpose Heart Use Rate(bpm) 11:31 LV 47/16,18 Snapshot 80 Snapshots Pre Cath Intra NCS Post Cath Vital Signs Time Heart Resp SPO2 NIBP (mmHg) Rhythm Pain Sedation Rate (ipm) (%) Status Level (bpm) 11:20:35 78 14 100 110/78(104) NSR 0 (11) 10(A) , No pain 11:25:40 71 18 93 123/79(94) NSR 0 (11) 10(A) , No pain 11:30:54 72 18 98 121/71(106) NSR 0 (11) 10(A) , No pain 11:35:39 75 16 99 121/72(95) NSR 0 (11) 10(A) , No pain 11:39:15 77 10 99 115/73(87) NSR 0 (11) 10(A) , No pain Medications Time Medication Route Dose Verified Delivered Reason Notes Effe ctiveness by by 11:15:27 Oxygen NC 2 Paul Buffie used for l/min Eldon Betancourt RN procedure 11:15:36 Lidocaine 2% added 20ml Paul Paul for local to vial Eldon Colón MD anesthetic field 11:15:41 Heparin Flush added 2 Paul Paul used for Bag to bags Eldon Colón MD procedure (1000units/500ml field NS) 11:15:50 0.9% NaCl I.V. 100 Paulion Barrowie Per ml/hr Eldon Betancourt RN physician 11:23:00 Versed I.V. 2 mg Paul Greenberg for Eldon Betancourt RN sedation 11:23:06 Fentanyl I.V. 100 Paul Pushpaie for nelda Betancourt RN sedation 11:26:34 Versed I.V. 1 mg Paul Barrowie for Eldon Betancourt RN sedation 11:26:38 Fentanyl I.V. 50 Paul Barrowie for mcg Eldon Betancourt RN sedation 11:31:23 Versed I.V. 1 mg Paul Barrowie for Eldon Betancourt RN sedation 11:31:27 Fentanyl I.V. 50 Paul Pushpaie for mcg Eldon Betancourt RN sedation 11:35:01 Fentanyl I.V. 50 Paulion Barrowie for nelda Betancourt RN sedation Procedure Log Time Note 10:50:55 Dionicio Betancourt RN sent for patient. Start room use. 10:59:23 Informed consent obtained and on chart 10:59:28 Diagnostic Cath Status : Elective 11:00:11 Time tracking: Regular hours 11:00:16 Plan of Care:Hemodynamics will remain stable., Cardiac rhythm will remain stable., Comfort level will be maintained., Respiratory function will remain adequate., Patient/ family verbilizes understanding of procedure., Procedure tolerated without complication., Recovers from procedure without complications.. 11:01:34 Lab Result : Hemoglobin 13.3 g/dl 11:01:34 Lab Result : Creatinine 1.2 mg/dl 11:01:34 Lab Result : BUN 31 mg/dl 11:01:54 Patient Height : 170.18 cm 11:01:58 Patient Weight : 92.99 kg 11:01:58 Admit Source: Other 11:02:06 Arrival Date: 06/08/2017 11:00:00 AM 11:02:20 Insurance Payor : Private health insurance 11:04:41 Patient received from Pre/Post Procedure Room to CCL 2 Alert and oriented. Tansferred to table in Supine position. 11:04:42 Warm blankets applied, and ricardo hugger turned on for patient comfort. 11:04:43 Correct patient and procedure confirmed by team. 11:04:43 ECG and BP/O2 sat monitors applied to patient. 11:15:27 Oxygen 2 l/min NC was administered by Dionicio Betancourt RN; used for procedure; 11:15:36 Lidocaine 2% 20ml vial added to field was administered by Paul Colón MD; for local anesthetic; 11:15:41 Heparin Flush Bag (1000units/500ml NS) 2 bags added to field was administered by Paul Colón MD; used for procedure; 11:15:50 0.9% NaCl 100 ml/hr I.V. was administered by Dionicio Betancourt RN; Per physician; 11:18:14 Vital chart was started 11:18:15 Baseline sample Acquired. 11:18:19 Rhythm: sinus rhythm 11:18:31 Full Disclosure recording started 11:19:23 H&P Date Dictated: 05/04/2017 New H&P dictated by physician.. 11:19:24 Pre-procedure instructions explained to patient. 11:19:24 Pre-op teaching completed and patient verbalized understanding. 11:19:26 Family in waiting room. 11:19:27 Patient NPO since Midnight. 11:21:38 Is the patient allergic to Iodine/contrast media? No. 11:21:39 Was the patient premedicated? No 11:21:41 Is patient on blood thinner?Yes 11:21:46 ACC The patient was administered the following blood thiners within the last 24 hours: ACCPlavix 11:21:49 Patient diabetic? Yes. 11:21:50 If diabetic: On Metformin? Yes 11:21:54 If on Metformin: Last Dose? 06/07/2017 11:21:57 Previous problem with sedation/anesthesia? No ? 11:21:59 Snore? Yes 11:22:00 Sleep apnea? No 11:22:01 Deviated septum? No 11:22:02 Opens mouth fully? Yes 11:22:02 Sticks out tongue? Yes 11:22:04 Airway obstruction? No ? 11:22:07 Dentures? No ? 11:22:19 Pre procedure: right dorsailis pedis pulse 2+ Normal; easily identifiable; not easily obliterated 11:22:21 Pre procedure: left dorsailis pedis pulse 2+ Normal; easily identifiable; not easily obliterated 11:22:24 Patient pain scale 0/10 ?. 11:22:33 IV patent on arrival in left forearm with 0.9% NaCl at [facility]. 11:22:36 Lab results completed and on chart. 11:22:40 Right groin area was prepped with chlora-prep and draped in sterile fashion 11::41 Alarms reviewed by R. N. 11:22:41 Sharps counted by scrub and verified by R.N. 11::43 Physician arrived 11::43 --------ALL STOP TIME OUT------ 11::44 Final Timeout: patient, procedure, and site verified with staff and physician. All members of the team are in agreement. 11:22:46 Right groin site verified by team. 11::49 Physical assessment completed. ASA score P 2 - A patient with mild systemic disease as per Paul Colón MD. 11:22:52 Sedation plan: IV Moderate Sedation Versed, Fentanyl 11:23:00 Versed 2 mg I.V. was administered by Dionicio Betancourt RN; for sedation; 11:23:02 Use device set Femoral Dx 11:23:03 Acist Syringe opened to sterile field. 11:23:04 Bag Decanter opened to sterile field. 11:23:04 Medline Cath Pack opened to sterile field. 11:23:05 Terumo 5Fr [place]oul[place] Sheath opened to sterile field. 11:23:05 St Jassi 260cm J .035 wire opened to sterile field. 11:23:06 Fentanyl 100 mcg I.V. was administered by Dionicio Betancourt RN; for sedation; 11:23:06 Acist Hand Control opened to sterile field. 11:23:07 Acist Manifold opened to sterile field. 11:23:07 Diagnostic Infinity 5Fr Multipack catheter opened to sterile field. 11:23:08 Tegaderm 4 x 4 opened to sterile field. 11:26:00 Baseline sample Acquired. 11::34 Versed 1 mg I.V. was administered by Dionicio Betancourt RN; for sedation; 11::38 Fentanyl 50 mcg I.V. was administered by Dionicio Betancourt RN; for sedation; 11:27:00 Procedure started. 11:27:02 PERCUTANEOUS ENTRY 19GA needle opened to sterile field. 11:27:03 Local anesthetic to right femoral artery with Lidocaine 2% by Paul Colón MD.INITIAL ACCESS ONLY 11:27:11 A 5 Fr sheath was inserted into the Right Femoral artery 11::18 A Cordis 5Fr Pigtail Catheter (MP) was advanced over the wire and used for LV Angiography. 11::23 Versed 1 mg I.V. was administered by Dionicio Betancourt RN; for sedation; 11::27 Fentanyl 50 mcg I.V. was administered by Dionicio Betancourt RN; for sedation; 11::41 LV hemodynamics recorded. 11:31:42 LV gram done using PIERSON 11:31:45 Injector settings: Ml/sec: 5, Volume: 15, 11:31:51 EF : 40 % 11:31:56 Catheter removed. 11:32:06 A Cordis 5Fr JL 4.0 Catheter (MP) was advanced over the wire and used for Left Coronary Angiography. 11:33:20 LCA angiography performed. 11:33:22 Injector settings: Ml/sec: 3, Volume: 6, 11:33:25 Catheter removed. 11:33:32 A Cordis 5Fr 3DRC Catheter (MP) was advanced over the wire and used for Right Coronary Angiography. 11:35:01 Fentanyl 50 mcg I.V. was administered by Dionicio Betancourt RN; for sedation; 11:35:05 RCA angiography performed. 11:35:07 Injector settings: Ml/sec: 3, Volume: 6, 11:35:19 Catheter removed. 11:35:57 Cordis 5Fr Exoseal opened to sterile field. 11:36:55 Sheath removed intact; hemostasis achieved with Exoseal to the Right Femoral artery. 11:37:50 Procedure ended.(Physican Out) 11:38:16 Fluoroscopy time 01.10 minutes. 11:38:26 Flurop Dose total: 631 11:38:26 Fluoroscopy dose: 631 mGy 11:38:48 Contrast amount:Isovue 300 46ml. 11:38:53 Sharps counted by scrub and verified by R.N. 11:38:58 Insertion/operative site no bleeding no hematoma. 11:39:01 Post-op/insertion site Right Femoral artery dressed using a 4 x 4 and Tegaderm. 11:39:03 Post right femoral artery:stable 11:39:05 Post Procedure Pulses reassessed and unchanged 11:39:11 Post procedure rhythm: sinus rhythm 11:39:14 Estimated blood loss: 5 ml 11:39:15 Post procedure instruction explained to patient.Patient verbalizes understanding. 11:39:17 Patient needs reinforcement of post procedure teaching. 11:39:43 Procedure type changed to Cath procedure, Diagnostic procedure, LHC, LHC w/Coronaries, Miscellaneous Procedures, Moderate Sedation up to 30 minutes 11:39:44 Procedure and supply charges have been captured, reviewed, submitted and are correct. 11:39:48 Procedure Complication : No complications 11:40:04 Vital chart was stopped 11:40:04 See physician's report for complete and final results. 11:40:11 Report given to Pre/Post Procedure Room. 11:40:14 Patient transfered to Pre/Post Procedure Room with Stretcher. 11:40:16 Procedure ended. 11:40:16 Full Disclosure recording stopped 11:40:29 End room use (Document Last) Device Usage Item Name Manufacture Quantity Catalog Hospital Part Current Minimal Lot# / Number Charge Number Stock Stock Serial# Code Acist Acist 1 [id number] 375078 832241 20 Syringe [employer] Inc Bag Decanter Microtek 1 2001S 938129 64944 823984 5 Medical Inc. Medline Cath Cardinal 1 [id number] 812744 42654 966263 5 Pack Health Terumo 5Fr Terumo 1 [id number] 329794 363421 958179 [address] Jassi 1 365227 213485 315592 116623 30 260cm J .035 wire Acist Hand Acist 1 96264 613511 743769 986400 5 Control Medical Systems Inc Acist Acist 1 51136 838594 957522 168547 5 Manifold Medical Systems Inc Diagnostic Cardinal 1 [id number] 479808 54471 687249 30 Infinity 5Fr Health Multipack catheter Tegaderm 4 x 3M 1 1626W 477708 220610 001266 5 4 Cordis 5Fr Cardinal 1 207341 5 Pigtail Health Catheter (MP) PERCUTANEOUS [facility] 1 [id number] 541763 047803 5 [id number] ENTRY 19GA needle Cordis 5Fr Cardinal 1 187374 5 JL 4.0 Health Catheter (MP) Cordis 5Fr Cardinal 1 980873 5 3DRC Health Catheter (MP) Cordis 5Fr Cardinal 1 EX500 832521 876148 482793 10 TBi Connect Signature Audit [place] Stage Time Signature Unsigned Intra-Procedure 06/08/2017 Farideh Samson 11:41:36 AM RT(R) Signatures Monitor : Farideh Samson RT Signature : Date : Time : [address] [place] [address]
[~2017-06-08 09:04] MED LIST changes: +GABAPENTIN100 MG PO
[2017-06-08] MEDS ORDERED: GLUCOPHAGE1000 MG PO (09:49)
[2017-06-08] MEDS ORDERED: CYCLOBENZAPRINE10 MG PO (09:50)
[2017-06-08] MEDS ORDERED: PLAVIX75 MG PO (09:50)
[2017-06-08] MEDS ORDERED: AMBIEN10 MG PO (09:50)
[2017-06-08 09:57] VITALS: BP 136/71; Ht 170.2 cm; Wt 90.9 kg
[2017-06-08 10:00] LABS: BASOPHILS 0.4 % (0-2); EOSINOPHILS 2.3 % (0-7); HEMATOCRIT 39.3 % (36.0-48.0); HEMOGLOBIN 13.3 g/dL (12-16); IMMATURE GRANULOCYTES 0.1 % (0-5); LYMPHOCYTES 28.3 % (15-50); MCH 27.9 pg (26.0-34.0); MCHC 33.8 g/dL (31.0-37.0); MCV 82.6 fL (80.0-100.0); MONOCYTES 9.6 % (2-11); NEUTROPHILS 59.3 % (40-80); PLATELET COUNT 202 10x3/uL (130-400); RBC 4.76 10x6/uL (4.00-5.40); RDW 15.3 % (11.5-14.5); WBC 7.8 10x3/uL (4.8-10.8)
[2017-06-08 10:16] LABS: ANION GAP 15.9 mmol/L (8-16); CALCIUM 8.8 mg/dL (8.5-10.1); CARBON DIOXIDE 23.3 mmol/L (21.0-32.0); CREATININE - SERUM 1.2 mg/dL (0.6-1.3); POTASSIUM - SERUM 4.2 mmol/L (3.5-5.1)
--- NOTE | 2017-06-08 12:01 | NUR ---
RIGHT GROIN CDI, NO HEMATOMA OR BLEEDING AT SITE, SOFT TO TOUCH. WATER GIVEN, DENIES FURTHUR NEEDS-FAMILY AT BEDSIDE
--- NOTE | 2017-06-08 12:30 | NUR ---
RIGHT GROIN CDI, NO HEMATOMA OR BLEEDING AT SITE, VSS, GROIN SOFT TO TOUCH. DENIES NEEDS, FAMILY AT SIDE
--- NOTE | 2017-06-08 13:14 | NUR ---
NORCO 10/325 X1 GIVEN FOR SHOULDER PAIN-THIS WAS A PRE PROCEDURE PAIN. 8
--- NOTE | 2017-06-08 14:10 | NUR ---
IV D'C WITH CATH TIP INTACT, WRITTEN AND VERBAL D'C INSTRUCTIONS GIVEN TO PT AND FAMILY- VERBAL UNDERSTANDING NOTED. PAIN IN SHOULDER MUCH BETTER. D'C HOME WITH FAMILY
== END 2017-06-08 14:15 | disposition home or self-care (01) ==
LOC: D.CATH 09:04
PROVIDERS: Internal Medicine Interventional Cardiology
DX: I25.119 Atherosclerotic heart disease of native coronary artery with unspecified angina pectoris (principal); I10 Essential (primary) hypertension; E78.5 Hyperlipidemia, unspecified; R94.30 Abnormal result of cardiovascular function study, unspecified; Z01.812 Encounter for preprocedural laboratory examination

== ENCOUNTER → 2017-06-24 16:42 | Outpatient (CLI) | payer BC ==
[2017-06-08 09:57] VITALS: BMI 31.4
[~2017-06-24 16:42] MED LIST changes: +GLUCOPHAGE1000 MG PO
== END | disposition home or self-care (01) ==
LOC: D.MAMMO 14:45
DX: Z12.31 Encounter for screening mammogram for malignant neoplasm of breast (principal)

== ENCOUNTER → 2017-07-27 19:18 | Outpatient (CLI) | payer BC ==
[2017-06-08 09:57] VITALS: BMI 31.4
== END | disposition home or self-care (01) ==
LOC: D.MAMMO 13:30
DX: R92.8 Other abnormal and inconclusive findings on diagnostic imaging of breast (principal)

== ENCOUNTER 2017-12-07 05:56 | Inpatient (IN) | payer BC ==
[2017-12-06 14:13] LABS: BASOPHILS 0.3 % (0-2); EOSINOPHILS 1.7 % (0-7); HEMATOCRIT 37.4 % (36.0-48.0); HEMOGLOBIN 12.7 g/dL (12-16); IMMATURE GRANULOCYTES 0.2 % (0-5); MCH 28.6 pg (26.0-34.0); MCV 84.2 fL (80.0-100.0); MEAN PLATELET VOLUME 10.9 fL (7.4-10.4); MONOCYTES 8.7 % (2-11); NEUTROPHILS 64.1 % (40-80); PLATELET COUNT 230 10x3/uL (130-400); RBC 4.44 10x6/uL (4.00-5.40); WBC 10.7 10x3/uL (4.8-10.8)
[2017-12-07] VITALS (17 sets, daily range): BP systolic 120–179; BP diastolic 67–89; BMI 29.5
[~2017-12-07] VITALS: Ht 170.2 cm; Wt 85.5 kg
--- NOTE | ~2017-12-07 | DS ---
PATIENT:ULI BAUMANN :56 MEDICAL RECORD: [id number] DISCHARGE SUMMARY ADMISSION DATE: 12/07/17 DISCHARGE DATE: 12/09/17 ADMISSION DATE: 12/07/2017. DISCHARGE DATE: 12/09/2017. PREOPERATIVE DIAGNOSES: 1. Leiomyomata uteri. 2. Essential hypertension. ADMISSION DIAGNOSES: 1. Leiomyomata uteri. 2. Essential hypertension. DISCHARGE DIAGNOSES: 1. Leiomyomata uteri. 2. Essential hypertension. PROCEDURE PERFORMED: Total abdominal hysterectomy and bilateral salpingo-oophorectomy. ATTENDING: Leeroy Darling MD HISTORY OF PRESENT ILLNESS: See the H&P in the chart. SUMMARY OF HOSPITALIZATION: The patient was admitted to the hospital and underwent procedure without incident. At the time of discharge, she was tolerating regular diet and voiding without difficulty. The patient has good bowel sounds and the incision was clean, dry and intact. The patient will be followed up in 2 weeks at [facility] and standard postoperative precautions have been reviewed. TRANSINT:[id number] Voice Confirmation ID: [id number] DOCUMENT ID: [id number] LEEROY DARLING MD at 1728 CC: [id number] DICTATION DATE: 01/30/18 0726 RESIDENTIAL FEE APPRAISER: 01/30/18 1331 DIS IN 12/09/17 [address] [place] [address]
--- NOTE | ~2017-12-07 | OP ---
PATIENT NAME: ULI BAUMANN MEDICAL RECORD: [id number] :56 LOCATION:[id number] ADMISSION DATE:12/07/17 SURGEON: FERMIN DARLING MD DATE OF OPERATION: 12/07/2017 PREOPERATIVE DIAGNOSIS: Symptomatic fibroid uterus. POSTOPERATIVE DIAGNOSES: Symptomatic fibroid uterus. PROCEDURE PERFORMED: Total abdominal hysterectomy with bilateral salpingo-oophorectomy. SURGEON: Fermin Darling MD MAIL DISTRIBUTION SCHEME EXAMINER: Shahbaz Diaz. ANESTHESIOLOGIST: Reynaldo Mendoza MD ANESTHESIA: General. FINDINGS: Large fundal fibroid approximately 8 cm in width. Otherwise, the pelvic anatomy was unremarkable. What was palpated at the abdominal anatomy was unremarkable as well. SPECIMEN REMOVED: Uterus with cervix and tubes and ovaries. SPECIMEN DISPOSITION: Pathology. ESTIMATED BLOOD LOSS: Less than or equal to 100 cc. FLUIDS: 450 cc of normal saline. URINE OUTPUT: 10 cc clear urine. COMPLICATIONS: None. DRAINS: Duval to gravity. INDICATIONS: The patient is a 57-year-old female with abdominal pain and a known fibroid uterus, it is palpable abdominally and then concern to the patient. The patient has been offered conservative management and strongly desires definitive treatment. The patient has been described all risks and benefits as well as limitations of this procedure. DESCRIPTION OF PROCEDURE: After informed consent was assured, the patient was taken to the operating room, anesthetic was obtained without difficulty. She is supine on the table and has been prepped and draped. An incision is made over the old midline incision, carried down to the underlying layer of the fascia, which is opened in the midline. The rectus bellies were and the peritoneum entered sharply. The peritoneal opening was extended superiorly and inferiorly and the rectus bellies further . An Bret O retractor was now placed and tightened. Using a Bolton retractor and a malleable retractor, the bowel was deflected free of the operative field. Kim clamps were used to crossclamp the cornual region bilaterally. The left tube is now stick tied and the left round ligament is clamped and stick tied after mobilization with OPERATIVE REPORT [id number] ULI BAUMANN scissors. The anterior leaf of the round ligament was opened and the bladder flap developed in the midline. Windows developed in the posterior leaf of the broad ligament and clamps passed through here. The pedicle was now mobilized with ciry-vgm-qzk stitch applied on the distal segment of this pedicle and ovary and tube freed of the uterus. Dissection continues on the left side until the vessels are now exposed. The vessels are now clamped with Estevan-Miltona clamp and attention is directed to the right side. Right leg and round ligament is elevated with Halbur clamp and the ligament stick tied laterally. Using Bovie cautery, the ligament is entered and with the suction undermining the anterior lip of the broad ligament, dissection was carried down and the bladder flap was now fully developed. The posterior leaf now has a window developed with the Bovie cautery and a clamp passed through here. The uterine ovarian ligament is now mobilized with scissors after passing the Kim clamp over the cornual region through this opening. The pmom-ros-jxn stitch was applied for hemostasis. Dissection continues into the vessels of the right side were skeletonized. Two Estevan-Miltona clamps were placed of the uterine arteries at the level of the internal os. This pedicle was mobilized with scissors. Uterus was now removed from the cervix and passed to the attendant. The double clamped uterine artery on the right side now has a simple stitch placed on the inferior most clamp and therefore Mehrdad stitch was placed above after removal of the inferior clamp. Hemostasis is achieved and the remaining portions of the cardinal ligaments were serially clamped, cut, and tied into the uterosacral ligaments were reached. On the patient's left side, dissection is continued in similar fashion. A Estevan-Miltona clamp was used to obtain hemostasis of the uterine artery and a straight clamp was used to serially clamp, cut, and tie until the level of the uterosacral ligaments were reached. Over the uterosacral ligament undermining the cervix on the patient's left side, a Estevan-Miltona clamp was placed. A Zeppelin curved clamp was placed under the right side incorporating the uterosacral ligament and the superior most aspect of the vagina undermining the cervix. Cervix is now removed with Nidhi scissors and the cuff closed with szcske-ci-ozszu stitches. Attention now directed to the right adnexa, which is elevated with a Annie clamp and Estevan-Miltona clamp placed on the infundibulopelvic ligament. A free tie was used and the pedicle was flashed and then a stick tie placed and the clamp removed. The attention was now directed on the left side. There were some adhesions on the left adnexa to the bowel and this was taken down sharply. Once this has been freed, a clamp was placed on the infundibulopelvic ligament and the left adnexa was removed. A free tie and then ebcp-xcp-dqz stitch was used to obtain hemostasis on this pedicle. Pelvis is inspected and found to be hemostatic. The fascia was now closed in a mass closure with looped PDS four-fifths of the way from superiorly to inferiorly and with a single strand PDS from inferior margin incorporating both the bottom 20% of the incision. Both ligatures were tied separate. The subcutaneous tissue is inspected and found to be hemostatic and the space closed with a plain gut ligature. The skin was reapproximated with elvia. Sponge, lap, and needle counts correct times 2 at the close of the procedure. The patient is awake and went to the recovery room. TRANSINT:[id number] Voice Confirmation ID: [id number] DOCUMENT ID: [id number] OPERATIVE REPORT [id number] ULI BAUMANN,FERMIN Escamilla MD at 1251 CC: [id number] DICTATION DATE: 12/07/17924 DOUGHMAKER: 12/07/17 1151 DIS IN 12/09/17 [facility] [address] [place] [address]
[~2017-12-07 05:56] MED LIST changes: +FLAXSEED OIL1000 MG PO; -GLUCOPHAGE1000 MG PO; +GLUCOPHAGE500 MG PO; +MULTIPLE VITAMI1 TA1 PO
[2017-12-08] VITALS (12 sets, daily range): BP systolic 152–190; BP diastolic 67–88; Ht 170.2 cm; Wt 85.5 kg
[2017-12-08 05:40] LABS: BASOPHILS 0.2 % (0-2); EOSINOPHILS 0.6 % (0-7); HEMATOCRIT 36.9 % (36.0-48.0); HEMOGLOBIN 12.1 g/dL (12-16); IMMATURE GRANULOCYTES 0.2 % (0-5); LYMPHOCYTES 11.1 % (15-50); MCH 28.2 pg (26.0-34.0); MCHC 32.8 g/dL (31.0-37.0); MEAN PLATELET VOLUME 10.3 fL (7.4-10.4); MONOCYTES 9.7 % (2-11); NEUTROPHILS 78.2 % (40-80); RBC 4.29 10x6/uL (4.00-5.40); RDW 15.4 % (11.5-14.5); WBC 12.7 10x3/uL (4.8-10.8)
[2017-12-08 06:01] LABS: CALC OSMOLALITY 272 mosm/kg (275-300); CALCIUM 7.7 mg/dL (8.5-10.1); CARBON DIOXIDE 24.2 mmol/L (21.0-32.0); CHLORIDE - SERUM 100 mmol/L (98-107); CREATININE - SERUM 0.8 mg/dL (0.6-1.3); GLUCOSE 139 mg/dL (74-106); POTASSIUM - SERUM 3.6 mmol/L (3.5-5.1); SODIUM 135 mmol/L (136-145); UREA NITROGEN 16 mg/dL (7-18); eGFR NON AFRICAN AMERICAN 78 mL/min (90-120)
[2017-12-08 06:17] LABS: PLATELET COUNT 178 10x3/uL (130-400)
[2017-12-09 07:26] VITALS: BP 177/76
[2017-12-09] MEDS ORDERED: TORADOL10 MG PO (10:33)
[2017-12-09] MEDS ORDERED: PERCOCET 7.5/321 TAB PO (10:35)
[2017-12-09 11:52] VITALS: BP 153/69
== END 2017-12-09 14:00 | disposition home or self-care (01) | DRG 743 ==
LOC: D.LD 05:56 → D.SDCHOLD 05:56 → D.LD 10:11
PROVIDERS: Obstetrics & Gynecology
PROC: 0UT20ZZ Resection of Bilateral Ovaries, Open Approach (ICD-10-PCS; 2017-12-07)
PROC: 0UT90ZZ Resection of Uterus, Open Approach (ICD-10-PCS; principal; 2017-12-07 07:30)
PROC: 0UT70ZZ Resection of Bilateral Fallopian Tubes, Open Approach (ICD-10-PCS; 2017-12-07 07:30)
DX: D25.9 Leiomyoma of uterus, unspecified (principal); I10 Essential (primary) hypertension

== ENCOUNTER 2018-02-08 23:45 | Emergency (ER) | payer BC ==
[~2018-02-08 23:45] MED LIST changes: +PERCOCET 7.5/321 TAB PO; +TORADOL10 MG PO
== END 2018-02-09 01:52 | disposition home or self-care (01) ==
LOC: D.ER 23:45
DX: S39.012A Strain of muscle, fascia and tendon of lower back, initial encounter (principal); X50.9XXA Other and unspecified overexertion or strenuous movements or postures, initial encounter; Y93.H2 Activity, gardening and landscaping; Y92.017 Garden or yard in single-family (private) house as the place of occurrence of the external cause; M62.838 Other muscle spasm; M54.12 Radiculopathy, cervical region; I50.9 Heart failure, unspecified; I10 Essential (primary) hypertension

== ENCOUNTER 2018-02-11 14:15 | Emergency (ER) | payer BC ==
[2017-12-08 10:46] VITALS: BMI 29.5
[2018-02-11 15:42] LABS: APPEARANCE CLEAR (CLEAR); COLOR YELLOW (YELLOW); NITRITE NEGATIVE (NEGATIVE)
[2018-02-11 15:43] LABS: BILIRUBIN NEGATIVE (NEGATIVE); GLUCOSE NEGATIVE (NEGATIVE); KETONE NEGATIVE (NEGATIVE); PROTEIN TRACE mg/dL (NEGATIVE); UROBILINOGEN NORMAL (NORMAL)
== END 2018-02-11 17:18 | disposition home or self-care (01) ==
LOC: D.ER 14:15
PROVIDERS: Family Medicine
DX: S39.012A Strain of muscle, fascia and tendon of lower back, initial encounter (principal); X50.0XXA Overexertion from strenuous movement or load, initial encounter; Y93.89 Activity, other specified; Y92.019 Unspecified place in single-family (private) house as the place of occurrence of the external cause; M54.5 Low back pain; I10 Essential (primary) hypertension; I50.9 Heart failure, unspecified

== ENCOUNTER 2018-02-13 11:33 | Emergency (ER) | payer BC ==
[2017-12-08 10:46] VITALS: BMI 29.5
== END 2018-02-13 15:52 | disposition home or self-care (01) ==
LOC: D.ER 11:33
DX: M54.5 Low back pain (principal); I10 Essential (primary) hypertension

== ENCOUNTER → 2018-02-17 10:04 | Outpatient (CLI) | payer BC ==
[2017-12-08 10:46] VITALS: BMI 29.5
== END | disposition home or self-care (01) ==
LOC: D.CT 10:04
DX: R10.9 Unspecified abdominal pain (principal)

== ENCOUNTER → 2018-03-13 12:23 | Outpatient (CLI) | payer BC ==
[2017-12-08 10:46] VITALS: BMI 29.5
== END | disposition home or self-care (01) ==
LOC: D.MRI 12:23
DX: M54.16 Radiculopathy, lumbar region (principal); G95.9 Disease of spinal cord, unspecified

== ENCOUNTER → 2018-03-22 11:07 | Outpatient (CLI) | payer BC ==
[2017-12-08 10:46] VITALS: BMI 29.5
== END | disposition home or self-care (01) ==
LOC: D.MRI 11:00
DX: M54.16 Radiculopathy, lumbar region (principal); G95.9 Disease of spinal cord, unspecified

== ENCOUNTER 2018-05-23 05:25 | Day surgery (SDC) | payer BC ==
[2018-05-22 13:13] LABS: HEMATOCRIT 38.4 % (36.0-48.0); HEMOGLOBIN 12.8 g/dL (12-16); MCH 28.9 pg (26.0-34.0); MCHC 33.3 g/dL (31.0-37.0); MCV 86.7 fL (80.0-100.0); MEAN PLATELET VOLUME 11.3 fL (7.4-10.4); RBC 4.43 10x6/uL (4.00-5.40); RDW 15.4 % (11.5-14.5); WBC 7.6 10x3/uL (4.8-10.8)
[2018-05-22 13:26] LABS: ANION GAP 12.1 mmol/L (8-16); CALCIUM 8.4 mg/dL (8.5-10.1); CARBON DIOXIDE 25.3 mmol/L (21.0-32.0); CREATININE - SERUM 1.1 mg/dL (0.6-1.3); POTASSIUM - SERUM 4.4 mmol/L (3.5-5.1)
[2018-05-23] VITALS (13 sets, daily range): BP systolic 143–182; BP diastolic 77–100; Ht 170.2 cm; Wt 88.2 kg
[~2018-05-23] VITALS: Ht 170.2 cm; Wt 88.2 kg
--- NOTE | ~2018-05-23 | OP ---
PATIENT NAME: ULI BAUMANN MEDICAL RECORD: [id number] :56 LOCATION:[facility] ADMISSION DATE: SURGEON: ELVIA DE LEON MD DATE OF OPERATION: 05/23/2018 PREOPERATIVE DIAGNOSES: Disc herniation and osteophyte formation at C5-C6 and C6-C7 with spinal cord compression. POSTOPERATIVE DIAGNOSES: Disc herniation and osteophyte formation at C5-C6 and C6-C7 with spinal cord compression. PROCEDURE: Anterior cervical discectomy and fusion with removal of osteophytes of C5-C6 and C6-C7. SURGEON: Elvia De Leon MD DESCRIPTION AND TECHNIQUE: After induction of general endotracheal anesthesia, the patient was positioned supine on the operating room table. Neck was prepped and draped in usual sterile fashion. Fluoroscopic x-ray and freer localized the C5-C6 interspace. A transverse skin incision was carried out from the midline to the sternocleidomastoid muscle. The platysma was divided with Bovie cautery. Using blunt and sharp dissection with Metzenbaum scissors, I proceeded in the avascular plane medial to the carotid sheath. Self-retaining retractors were placed deep to the longus colli muscles. Floris pins were placed in the bodies of C5, C6, and C7. Disc spaces were incised at C5-C6 and C6-C7. The disc material was removed from each interspace with pituitary rongeurs and curettes. The posterior longitudinal ligament was removed with Cloward rongeurs. The dura was decompressed well at both levels. Osteophytes were drilled away posteriorly with Midas-Miguel Angel drill under microscope illumination. A PEEK interbody cage was placed at each interspace under distraction. Prior to this, it was filled with a bone stem cell allograft. A separate anterior cervical plate and screws was used to span the C5-C6 and C6-C7 interspaces. Then, 16-mm screws were placed through each hole in the plate. Locking cams were tightened down over the screw heads. Good position of the hardware was confirmed with fluoroscopic x-ray. Hemostasis was maintained throughout the wound. The wound was irrigated with copious amounts of Ancef irrigant solution. The platysma and subdermal layer closed with 3-0 Vicryl suture. The skin was reapproximated with Steri-Strips and benzoin. A sterile dressing was applied to the wound. The patient was awakened in good condition and taken to recovery. All counts were reported as correct. Estimated blood loss was minimal. TRANSINT:[id number] Voice Confirmation ID: [id number] DOCUMENT ID: [id number] ELVIA DE LEON MD at 1709 CC: [id number] DICTATION DATE: 05/23/18 1009 [facility] PSYCH SALES SPECIALIST: 05/23/18 1048 [facility] [place] 05/24/18 [place] [id number]
[2018-05-24] VITALS: BP 187/96; BP 191/100
[2018-05-24 01:00] VITALS: BP 161/87
[2018-05-24 03:00] VITALS: BP 147/76; BP 176/99
[2018-05-24 04:00] VITALS: BP 167/91
[2018-05-24 05:00] VITALS: BP 145/86
[2018-05-24 05:22] LABS: ALBUMIN 3.7 g/dL (3.4-5.0); ANION GAP 15.9 mmol/L (8-16); BILIRUBIN - TOTAL 0.56 mg/dL (0.2-1.3); CALCIUM 8.9 mg/dL (8.5-10.1); CARBON DIOXIDE 24.5 mmol/L (21.0-32.0); PROTEIN - SERUM 7.9 g/dL (6.4-8.2)
[2018-05-24 05:25] LABS: POTASSIUM - SERUM 3.4 mmol/L (3.5-5.1)
== END 2018-05-24 09:30 | disposition home or self-care (01) ==
LOC: D.ICU 05:25 → D.OPS 05:25 → D.CVICU 10:45 → D.ICU 12:08 → D.OPS 05-24 09:30
PROVIDERS: Anesthesiology; Neurological Surgery
DX: M25.78 Osteophyte, vertebrae (principal); M50.022 Cervical disc disorder at C5-C6 level with myelopathy; M50.122 Cervical disc disorder at C5-C6 level with radiculopathy; Z01.812 Encounter for preprocedural laboratory examination